=== PATIENT | female | born 1970 | race Two or more races ===

== ENCOUNTER 2017-11-25 23:44 | Emergency (ER) | payer OTHER ==
[2017-11-26] MEDS ORDERED: NORMAL SALINE 1000 ML 1,000 ML IV ONE ×2 (01:56→05:06)
[2017-11-26] MEDS ORDERED: ONDANSETRON 4 MG TAB.RAPDIS PO ONE (01:56)
[2017-11-26] MEDS ORDERED: FENTANYL CITRATE INJ/PF 100 MCG/2 ML AMPUL IV ONE (01:56)
--- NOTE | 2017-11-26 01:59 | ER Document Report ---
ED General - General Chief Complaint: Abdominal Pain Stated Complaint: ABDOMINAL PAIN Time Seen by Provider: 11/26/17 01:46 Information source: Patient Notes: 47-year-old female presents the emergency department with complaints of right upper quadrant abdominal pain for the last 12 hours. Patient states that the pain is a constant aching sensation with radiation around and the right lateral side. She is having associated nausea. She denies any vomiting, diarrhea, constipation, dysuria, hematuria, vaginal bleeding, vaginal discharge. Patient denies ever having this type of pain before. She denies any abdominal surgeries. Patient's last meal was at 8PM. TRAVEL OUTSIDE OF THE [place] IN LAST 30 DAYS: No - HPI Onset: Other - 12 hours Onset/Duration: Sudden Quality of pain: Fullness, Stabbing, Throbbing Severity: Moderate Pain Level: Denies Associated symptoms: Nausea Exacerbated by: Denies Relieved by: Denies Similar symptoms previously: No Recently seen / treated by doctor: No - Related Data Allergies/Adverse Reactions: Penicillins Allergy (Verified 11/28/12 00:22) Past Medical History - Social History Smoking Status: Never Smoker Family History: Reviewed & Not Pertinent Past Surgical History: Reports: Hx Orthopedic Surgery - right shoulder, Hx Tonsillectomy - Immunizations Hx Diphtheria, Pertussis, Tetanus Vaccination: Yes Review of Systems - Review of Systems Constitutional: No symptoms reported EENT: No symptoms reported Cardiovascular: No symptoms reported Respiratory: No symptoms reported Gastrointestinal: Abdominal pain, Nausea Genitourinary: No symptoms reported Female Genitourinary: No symptoms reported Musculoskeletal: No symptoms reported Skin: No symptoms reported Neurological/Psychological: No symptoms reported -: Yes All other systems reviewed and negative Physical Exam - Vital signs Vitals: Temp Pulse Resp BP Pulse Ox 97.5 F 70 20 130/74 H 100 11/25/17 23:52 11/25/17 23:52 11/25/17 23:52 11/25/17 23:52 11/25/17 23:52 Interpretation: Normal - Notes Notes: PHYSICAL EXAMINATION: GENERAL: Well-appearing, well-nourished and in no acute distress. HEAD: Atraumatic, normocephalic. EYES: Pupils equal round and reactive to light, extraocular movements intact, conjunctiva are normal. ENT: Nares patent, oropharynx clear without exudates. Moist mucous membranes. NECK: Normal range of motion, supple without lymphadenopathy LUNGS: Breath sounds clear to auscultation bilaterally and equal. No wheezes rales or rhonchi. HEART: Regular rate and rhythm without murmurs ABDOMEN: Soft, tenderness to palpation in the right upper quadrant. Positive Delgadillo sign. No guarding, no rebound. No masses appreciated. Female : deferred Musculoskeletal: Normal range of motion, no pitting or edema. No cyanosis. NEUROLOGICAL: Cranial nerves grossly intact. Normal speech, normal gait. Normal sensory, motor exams PSYCH: Normal mood, normal affect. SKIN: Warm, Dry, normal turgor, no rashes or lesions noted. Course - Re-evaluation Re-evalutation: 11/26/17 05:08 Patient has common bile duct dilatation at 1.3 cm. Possible choledocholithiasis. No evidence of cholecystitis. 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 I will transfer the patient to [facility] for ERCP. I spoke with Dr. Robbins. He is agreeable with accepting the patient. He would like the patient n.p.o. and receive some additional fluids. Patient is currently stable. - Vital Signs Vital signs: Temp Pulse Resp BP Pulse Ox 97.5 F 70 20 130/74 H 100 11/25/17 23:52 11/25/17 23:52 11/25/17 23:52 11/25/17 23:52 11/25/17 23:52 - Laboratory Result Diagrams: 11/26/17 02:30 11/26/17 02:30 Laboratory results interpreted by me: 11/26/17 11/26/17 11/26/17 02:30 02:30 03:00 RDW 14.2 H Seg Neutrophils % 78.3 H Sodium 145.3 H Chloride 109 H Lipase 545.7 H Ur Leukocyte Esterase MODERATE H Discharge - Discharge Clinical Impression: Gallstones, Common bile duct dilation Condition: Good Disposition: [facility] Referrals: RACHEL CARR MD [NO LOCAL MD] - Follow up as needed
[2017-11-26 02:44] LABS: ABSOLUTE BASOPHILS # (AUTO) 0.1 10^3/uL (0.0-0.2); ABSOLUTE EOSINOPHILS # (AUTO) 0.1 10^3/uL (0.0-0.6); ABSOLUTE LYMPHOCYTES (AUTO) 1.5 10^3/uL (0.5-4.7); ABSOLUTE MONOCYTES (AUTO) 0.5 10^3/uL (0.1-1.4); ABSOLUTE NEUT (AUTO) 7.6 10^3/uL (1.7-8.2); BASOPHILS % (AUTO) 0.6 % (0-2); EOSINOPHILS % (AUTO) 0.9 % (0-6); HEMOGLOBIN 13.1 g/dL (12.0-15.5); LYMPHOCYTES % (AUTO) 15.1 % (13-45); MEAN CORPUSCULAR HEMOGLOBIN 29.3 pg (27.0-33.4); MEAN CORPUSCULAR HGB CONC 33.5 g/dL (32.0-36.0); MEAN CORPUSCULAR VOLUME 87 fl (80-97); MONOCYTES % (AUTO) 5.1 % (3-13); PLATELET COUNT 237 10^3/uL (150-450); RED BLOOD COUNT 4.46 10^6/uL (3.72-5.28); RED CELL DISTRIBUTION WIDTH 14.2 % (11.5-14.0); SEGMENTED NEUTROPHILS % (AUTO) 78.3 % (42-78); TOTAL CELLS COUNTED % (AUTO) 100 %; WHITE BLOOD COUNT 9.7 10^3/uL (4.0-10.5)
[2017-11-26 03:08] LABS: ALANINE AMINOTRANSFERASE 14 U/L (9-52); ALBUMIN 3.5 g/dL (3.5-5.0); ALKALINE PHOSPHATASE 43 U/L (38-126); ANION GAP 9 (5-19); ASPARTATE AMINO TRANSFERASE 16 U/L (14-36); BILIRUBIN,DIRECT 0.2 mg/dL (0.0-0.4); BILIRUBIN,TOTAL 0.2 mg/dL (0.2-1.3); BLOOD UREA NITROGEN 11 mg/dL (7-20); CARBON DIOXIDE 27 mmol/L (22-30); CHLORIDE 109 mmol/L (98-107); GLUCOSE 102 mg/dL (75-110); LIPASE 545.7 U/L (23-300); POTASSIUM 4.3 mmol/L (3.6-5.0); SODIUM 145.3 mmol/L (137-145); TOTAL PROTEIN 6.7 g/dL (6.3-8.2)
[2017-11-26 03:18] LABS: APPEARANCE,URINE SLIGHTLY-CLOUDY; BILIRUBIN,URINE NEGATIVE (NEGATIVE); COLOR,URINE YELLOW; GLUCOSE, URINE NEGATIVE (NEGATIVE); KETONES,URINE NEGATIVE (NEGATIVE); LEUKOCYTE ESTERASE,URINE MODERATE (NEGATIVE); NITRITE,URINE NEGATIVE (NEGATIVE); PROTEIN,URINE NEGATIVE (NEGATIVE); URINE SPECIFIC GRAVITY 1.011; UROBILINOGEN,URINE NEGATIVE mg/dL (<2.0)
--- NOTE | 2017-11-26 04:02 | RADIOLOGY REPORT (SQ) ---
EXAM DESCRIPTION: US ABDOMEN LIMITED COMPLETED DATE/TME: 11/26/2017 01:55 CLINICAL HISTORY: RUQ pain COMPARISON: None. TECHNIQUE: Real-time sonographic images of the right upper abdomen were obtained using a curved multihertz transducer. FINDINGS: Pancreas: The visualized portions of the pancreas are unremarkable. Vascular: The visualized portions of the aorta and IVC are unremarkable. Liver: The liver has normal contour and echogenicity. Hepatopedal flow in the portal vein confirmed with color and spectral Doppler imaging.. The common bile duct measures 1.3 cm. Possible choledocholithiasis within the common bile duct. Gallbladder: Multiple mobile echogenic structures with posterior shadowing. The size of compatible with gallstones. Negative reported sonographic Delgadillo sign. Normal gallbladder wall thickness. No pericholecystic fluid. Possible small foci of adenomyomatosis of the gallbladder. Right Kidney: The right kidney measures 10.4 cm in length. No hydronephrosis, solid renal mass, or shadowing calculi. IMPRESSION: 1. Dilation of the common bile duct measuring 1.3 cm with possible choledocholithiasis. Correlation with MRCP or ERCP could provide additional characterization. 2. Cholelithiasis without other sonographic evidence of acute cholecystitis..
[2017-11-26 11:58] VITALS: BP 114/70
== END 2017-11-26 11:52 | disposition short-term general hospital (02) ==
LOC: ER 23:44
DX: K80.20 Calculus of gallbladder without cholecystitis without obstruction (principal); K83.8 Other specified diseases of biliary tract; R10.11 Right upper quadrant pain; R11.0 Nausea
CPT/HCPCS: 99285; 96361; 96374; 36415; 83690; 85025; 81025; 80053; 81001; 76705; S0119; J3010; J7030

== ENCOUNTER 2019-10-18 03:01 | Emergency (ER) | payer OTHER ==
[2019-10-18] MEDS ORDERED: FAMOTIDINE 20 MG TABLET PO ONE (03:51)
[2019-10-18] MEDS ORDERED: DEXAMETHASONE SOD PHOS INJ 10 MG/1 ML VIAL IM ONE (03:51)
[2019-10-18] MEDS ORDERED: DIPHENHYDRAMINE HCL 25 MG CAPSULE PO ONE (03:51)
--- NOTE | 2019-10-18 03:55 | ER Document Report ---
ED Skin Rash/Insect Bite/Abscs - General Chief Complaint: Rash Stated Complaint: RASH ALL OVER BODY Time Seen by Provider: 10/18/19 03:42 Notes: CHIEF COMPLAINT: Urticarial rash for 3 days HPI: 49-year-old female presenting to the emergency department complaining of an urticarial pruritic rash over the last 3 days. Started on the posterior neck and generally spread over the anterior neck, face, chest, arms legs and torso. Patient has not been outside recently. Does not had the rash and only sun exposed areas. Patient complains of slight tightness in the chest but no definitive shortness of breath. No difficulty swallowing or speaking. Patient reports no new foods, detergents, perfumes or other definitive allergens. 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 She is continue to take these medications. Patient went to an urgent care 2 days ago states she got a shot of a steroid and prescribed prednisone and sertraline. States the rash is not really better. ROS: See HPI - all other systems were reviewed and are otherwise negative Constitutional: no fever Eyes: no drainage, no blurred vision ENT: no runny nose, no sore throat Cardiovascular: + Positive chest tightness Resp: no SOB, no cough GI: no vomiting, no diarrhea, no abdominal pain : no dysuria Integumentary: no rash Allergy: + hives Musculoskeletal: no extremity pain or swelling Neurological: no numbness/tingling, no weakness MEDICATIONS: I agree with the patient medications as charted by the RN. ALLERGIES: I agree with the allergies as charted by the RN. PAST MEDICAL HISTORY/PAST SURGICAL HISTORY: Reviewed and agree as charted by RN. SOCIAL HISTORY: Reviewed and agree as charted by RN. FAMILY HISTORY: No significant familial comorbid conditions directly related to patient complaint EXAM: Reviewed vital signs as charted by RN. CONSTITUTIONAL: Alert and oriented and responds appropriately to questions. Well-appearing; well-nourished HEAD: Normocephalic; atraumatic EYES: PERRL; Conjunctivae clear, sclerae non-icteric ENT: normal nose; no rhinorrhea; moist mucous membranes; pharynx without lesions noted, no uvula edema or deviation, no tonsillar hypertrophy, phonation normal. No angioedema NECK: Supple without meningismus; non-tender; no cervical lymphadenopathy, no masses. No stridor CARD: RRR; no murmurs, no clicks, no rubs, no gallops; symmetric distal pulses RESP: Normal chest excursion without splinting or tachypnea; breath sounds clear and equal bilaterally; no wheezes, no rhonchi, no rales, pulse oximetry 97% on room air not hypoxic ABD/GI: Normal bowel sounds; non-distended; soft, non-tender, no rebound, no guarding; no palpable organomegaly or masses. BACK: The back appears normal and is non-tender to palpation, there is no CVA tenderness EXT: Normal ROM in all joints; non-tender to palpation; no cyanosis, no effusions, no edema SKIN: Normal color for age and race; warm; dry; good turgor; diffuse raised urticarial lesions are noted on the anterior and posterior neck, across the face, bilateral arms, bilateral legs, anterior and posterior torso NEURO: Moves all extremities equally; Motor and sensory function intact PSYCH: The patient's mood and manner are appropriate. Grooming and personal hygiene are appropriate. MDM: 49-year-old female with an allergic reaction with urticaria. She does not have definitive stridor or angioedema. Will give additional Decadron, antihi stamines here. Patient is continuing to take 3 medications for growth hormone deficiency she is likely having allergic reaction to 1 of these as there have been no other new medications, foods, definitive allergens in her routine daily. TRAVEL OUTSIDE OF THE [place] IN LAST 30 DAYS: No - Related Data Allergies/Adverse Reactions: Penicillins Allergy (Verified 10/18/19 04:04) Past Medical History - Social History Smoking Status: Unknown if Ever Smoked Family History: Reviewed & Not Pertinent Renal/ Medical History: Denies: Hx Peritoneal Dialysis Past Surgical History: Reports: Hx Cholecystectomy, Hx Orthopedic Surgery - right shoulder, Hx Tonsillectomy - Immunizations Hx Diphtheria, Pertussis, Tetanus Vaccination: Yes Physical Exam - Vital signs Vitals: Temp Pulse Resp BP Pulse Ox 98.0 F 84 20 107/65 100 10/18/19 03:16 10/18/19 03:16 10/18/19 03:16 10/18/19 03:16 10/18/19 03:16 Course - Re-evaluation Re-evalutation: 10/18/19 04:49 Patient rash is improved. Will discharge home to follow-up with PCP regarding medications. Return instructions given - Vital Signs Vital signs: Temp Pulse Resp BP Pulse Ox 98 F 84 20 107/65 100 10/18/19 03:22 10/18/19 03:16 10/18/19 03:16 10/18/19 03:16 10/18/19 03:16 Discharge - Discharge Clinical Impression: Allergic reaction Qualifiers: Encounter type: initial encounter Qualified Code(s): T78.40XA - Allergy, unspecified, initial encounter Condition: Stable Disposition: HOME, SELF-CARE Instructions: Acute Allergic Reaction ([facility]) Additional Instructions: Continue prednisone and sertraline as previously prescribed. Take Benadryl 50 mg every 6 hours for the next 3 days. Take Pepcid twice daily as prescribed. Follow-up with your primary care provider to discuss whether 1 of your medications may be causing your allergy. Return for worsening symptoms Prescriptions: Famotidine [Pepcid 20 mg Tablet] 20 mg PO BID #12 tablet
[2019-10-18 05:27] VITALS: BP 123/80
== END 2019-10-18 05:27 | disposition home or self-care (01) ==
LOC: ER 03:01
DX: T78.40XA Allergy, unspecified, initial encounter (principal); R21 Rash and other nonspecific skin eruption; L50.9 Urticaria, unspecified; R07.9 Chest pain, unspecified
CPT/HCPCS: 99282; 96372; J1100